=== PATIENT | female | born 2005 | race Caucasian/White ===

== ENCOUNTER 2023-03-20 21:57 | Emergency (ER) | payer MEDICAID ==
[~2023-03-20] VITALS: Ht 154.9 cm; Wt 65.9 kg
[2023-03-20 22:01] VITALS: TEMP 99
[2023-03-20 22:31] LABS: BILIRUBIN,URINE NEGATIVE (Neg); CLARITY,URINE SLIGHTLY CLOUDY (Clear); COLOR,URINE YELLOW (Yellow); GLUCOSE, URINE NEGATIVE (Neg); KETONES,URINE >=80 mg/dl (Neg); LEUKOCYTE ESTERASE ,URINE TRACE (Neg); NITRITES, URINE NEGATIVE (Neg); OCCULT BLOOD,URINE LARGE (Neg); PH,URINE 6.5 (4.8-8.0); PROTEIN,URINE TRACE mg/dl (Neg); URINE HCG POSITIVE (NEG)
[2023-03-20 22:38] LABS: UA COLLECTION TYPE CLN CATCH MIDSTREAM
[2023-03-20 22:43] LABS: BACTERIA,URINE 2+ /HPF (Neg); MUCUS STRANDS MANY /LPF (Neg); RBC,URINE TNTC /HPF (0-2)
[2023-03-20 22:47] LABS: SQUAMOUS EPITHELIAL CELL,UR MODERATE /LPF (FEW); TRANSITIONAL EPI CELLS,URINE FEW /HPF
[2023-03-20 22:51] LABS: MEAN PLATELET VOLUME 7.7 FL (7.4-10.4); MONOCYTES # (AUTO) 1.1 X10'3 (0-0.9); WHITE BLOOD COUNT 14.5 X10'3 (4.5-11.0)
[2023-03-20 22:53] LABS: BASOPHILS % (AUTO) 0.1 % (0-1); EOSINOPHILS % (AUTO) 0.2 % (0-6); HEMOGLOBIN 13.4 g/dl (12.0-16.0); LYMPHOCYTES # (AUTO) 0.9 X10'3 (1.1-4.8); LYMPHOCYTES % (AUTO) 6.1 % (21-51); MEAN CORPUSCULAR HEMOGLOBIN 30.6 PG (27.0-31.0); MEAN CORPUSCULAR HGB CONC 33.6 g/dL (33.0-36.5); MEAN CORPUSCULAR VOLUME 90.9 FL (78-98); MONOCYTES % (AUTO) 7.6 % (2-12); NEUTROPHILS # (AUTO) 12.5 X10'3 (1.8-7.7); PLATELET COUNT 335 X10'3 (140-440); RED CELL DISTRIBUTION WIDTH 13.8 % (11.5-14.5)
[2023-03-20] MEDS ORDERED: CefTRIAXone/D5W-Rocephin 1gm 50 ML IV ONE (23:00)
[2023-03-20] MEDS ORDERED: normal saline 1000ml 1,000 ML IV ONE ×2 (23:00)
[2023-03-20] MEDS ORDERED: morphine 2 MG/ML inj. syringe IV ONE (23:05)
[2023-03-20] MEDS ORDERED: ondansetron/PF 4mg/2ml inj IV ONE (23:05)
[2023-03-20 23:13] LABS: ALANINE AMINOTRANSFERASE 15 U/L (12-78); ALBUMIN 2.9 G/DL (3.4-5.0); ALBUMIN/GLOBULIN RATIO 0.6 (1.1-1.5); ALKALINE PHOSPHATASE 58 IU/L (20-180); ANION GAP 12 (8-16); ASPARTATE AMINO TRANSFERASE 12 U/L (10-37); BILIRUBIN,TOTAL 0.3 MG/DL (0.1-1.0); BLOOD UREA NITROGEN 5 MG/DL (7-18); CALCIUM 9.1 MG/DL (8.5-10.1); CHLORIDE 99 MMOL/L (99-107); CREATININE 0.71 MG/DL (0.40-0.90); GLUCOSE 126 MG/DL (70-104); LIPASE 17 U/L (16-77); SODIUM 134 MMOL/L (135-145); TOTAL CARBON DIOXIDE 22.6 MMOL/L (24-32); TOTAL PROTEIN 7.6 G/DL (6.4-8.2); eCRCL 95 ML/MIN; eGFR > 90 ML/MIN
[2023-03-20 23:16] LABS: BETA HCG,QUANTITATIVE 75431 mIU/ml
[2023-03-20] MEDS ORDERED: potassium Cl 20 mEq SR tablet PO STA (23:40)
[2023-03-21 00:38] VITALS: BP 125/78; PULSE 110; RESP 16; O2SAT 98
[2023-03-21] MEDS ORDERED: ONDA4TAB12 PO (01:09)
[2023-03-21] MEDS ORDERED: CEPH-585 PO (01:09)
== END 2023-03-21 01:28 | disposition home or self-care (01) ==
LOC: ER 21:58
DX: O23.31 Infections of other parts of urinary tract in pregnancy, first trimester (principal); Z3A.14 14 weeks gestation of pregnancy; N39.0 Urinary tract infection, site not specified; E86.0 Dehydration; Z88.0 Allergy status to penicillin; Z79.899 Other long term (current) drug therapy
CPT/HCPCS: 76700; 76801; 80053; 81001; 81025; 83690; 84702; 85025; 87088; 96365; 96375; 99285; J0696; J2270; J2405; J7030; 96361; 96374